=== PATIENT | female | born 1960 | race African-American/Black ===

== ENCOUNTER 2016-12-15 08:31 | Day surgery (SDC) | payer BC ==
--- NOTE | ~2016-12-15 | EGD ---
EGD REPORT [facility] [address] [address] NAME: RIMA WYNN : 62 STATUS : REG [facility]#: [id number] AGE: 56 ADM/REG DATE : 12/15/16 MR#: [id number] REPORT SERV DATE: 12/15/16 DICTATED BY: SHIRA NEAL DATE: 12/15/16 REPORT STATUS : Draft TRANSCRIBED BY: [employer] DATE: 12/15/16 [facility] Patient Name: Rima Wynn Date of : 1960 Attending MD: SHIRA NEAL, Procedure Date No Time: 12/15/2016 Procedure: Colonoscopy Indications: Screening for colorectal malignant neoplasm Referring MD: FLACO RODRIGUEZ Medicines: Monitored Anesthesia Care Complications: No immediate complications. Estimated blood loss: None. Procedure: Pre-Anesthesia Assessment: - ASA Grade Assessment: I - A normal, healthy patient. After I obtained informed consent, the scope was passed under direct vision. Throughout the procedure, the patient's blood pressure, pulse, and oxygen saturations were monitored continuously. The CF [id number] was introduced through the anus and advanced to the cecum, identified by appendiceal orifice and ileocecal valve. The colonoscopy was performed without difficulty. The patient tolerated the procedure well. The quality of the bowel preparation was good. Findings: The perianal and digital rectal examinations were normal. Multiple small-mouthed diverticula were found in the sigmoid colon. Internal hemorrhoids were found during retroflexion and were Grade I (internal hemorrhoids that do not prolapse). The exam was otherwise without abnormality on direct and retroflexion views. Impression: - Diverticulosis in the sigmoid colon. - Internal hemorrhoids. - The examination was otherwise normal on direct and retroflexion views. Recommendation: - Patient has a contact number available for emergencies. The signs and symptoms of potential delayed complications were discussed with the patient. Return to normal activities tomorrow. Written discharge instructions were provided to the patient. - Return to previous diet. - Patient medication history reviewed. Patient is appropriately not taking any medications. EGD REPORT [place] [address] [place]. [address] NAME: RIMA WYNN : [birth year] STATUS : REG [facility]#: [id number] AGE: 56 ADM/REG DATE : 12/15/16 MR#: [id number] REPORT SERV DATE: 12/15/16 DICTATED BY: SHIRA NEAL DATE: 12/15/16 REPORT STATUS : Draft TRANSCRIBED BY: [employer] DATE: 12/15/16 Procedure Code(s): --- Professional --- 99500, Colonoscopy, flexible, proximal to splenic flexure; diagnostic, with or without collection of specimen(s) by brushing or washing, with or without colon decompression (separate procedure) Diagnosis Code(s): --- Professional --- K64.0, First degree hemorrhoids K57.30, Diverticulosis of large intestine without perforation or abscess without bleeding Z12.11, Encounter for screening for malignant neoplasm of colon CPT copyright 2013 [employer]. All rights reserved. The codes documented in this report are preliminary and upon refinery operator assistant review may be revised to meet current compliance requirements. SHIRA NEAL, 12/15/2016 10:13 AM Number of Addenda: 0 Note Initiated On: 12/15/2016 9:48 AM Scope Withdrawal Time 0 hours 10 minutes 27 seconds [address] [place] [address]
== END 2016-12-15 23:59 | disposition home or self-care (01) ==
LOC: DMU 08:31
PROVIDERS: Internal Medicine Gastroenterology
PROC: 0DJD8ZZ Inspection of Lower Intestinal Tract, Via Natural or Artificial Opening Endoscopic (ICD-10-PCS; principal; 2016-12-15 10:00)
DX: Z12.11 Encounter for screening for malignant neoplasm of colon (principal); K64.0 First degree hemorrhoids; K57.30 Diverticulosis of large intestine without perforation or abscess without bleeding; Z88.0 Allergy status to penicillin